=== PATIENT | female | born 1985 | race Two or more races ===

== ENCOUNTER 2024-08-08 06:00 | Day surgery (SDC) | payer MEDICAID, SELFPAY ==
--- NOTE | 2024-08-05 06:30 | EKG_ITS ---
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
[2024-08-05 09:59] VITALS: BMI 31.0
[2024-08-05 10:43] LABS: Collection Type, Urine Clean Catch
[2024-08-05 11:06] LABS: Basophils # (Auto) 0.1 Thou/mm3 (0.0-0.2); Basophils % (Auto) 1 % (0-2.5); Eosinophils # (Auto) 0.3 Thou/mm3 (0.0-0.5); Eosinophils % (Auto) 4 % (0-10); Hematocrit 38.8 % (36.0-46.0); Hemoglobin 13.2 g/dL (12.0-16.0); Immature Granulocytes % (Auto) 0 % (0-0); Immature Granulocytes Auto 0.02 Thou/mm3 (0.00-0.00); Lymphocytes # (Auto) 2.8 Thou/mm3 (1.0-4.8); Lymphocytes % (Auto) 35 % (10-50); Mean Corpuscular Hemoglobin 29.1 pg (25.0-35.0); Mean Corpuscular Volume 86 fL (80-100); Monocytes # (Auto) 0.5 Thou/mm3 (0.0-0.8); Monocytes % (Auto) 6 % (0-12); Neutrophils # (Auto) 4.3 Thou/mm3 (1.8-7.7); Neutrophils % (Auto) 54 % (37-80); Nucleated Red Blood Cell % 0 /100 WBC (0); Platelet Count 283 Thou/mm3 (140-440); RDW Standard Deviation 42.3 fL (36.4-46.3); Red Blood Count 4.54 Miln/mm3 (4.00-5.20)
[2024-08-05 11:08] LABS: Bilirubin,Urine Negative (Negative); Blood,Urine Negative (Negative); Clarity,Urine Clear (Clear/Hazy); Color,Urine Yellow (Lt Yel-Yel); Glucose, Urine Negative (Negative); Ketones,Urine Negative (Negative); Leukocyte Esterase,Urine Negative (Negative); Nitrite,Urine Negative (Negative); Protein,Urine Trace (Neg - Trace); RBC,Urine 1 /hpf (0-3); Specific Gravity,Urine 1.032 (1.001-1.035); Squamous Epithelial Cell,Urine 8 /hpf (0-5); Urobilinogen,Urine Negative mg/dL (0.0-1.0); WBC,Urine 1 /hpf (0-5)
[2024-08-05 11:12] LABS: HCG Qualitative,Urine Negative
[2024-08-05 11:13] LABS: INR 0.9 (0.9-1.3); Partial Thromboplastin Time 27.4 Seconds (22.0-36.0); Prothrombin Time 10.4 Seconds (9.0-12.2)
[2024-08-05 11:24] LABS: Alanine Aminotransferase 20 U/L (10-49); Albumin, Serum 4.5 gm/dL (3.5-5.0); Albumin/Globulin Ratio 1.7 (1.2-2.2); Alkaline Phosphatase 80 U/L (46-116); Anion Gap 8 (7-16); Aspartate Amino Transferase 14 U/L (0-34); BUN/Creatinine Ratio 29 Ratio (12-20); Bilirubin,Total 0.4 mg/dL (0.3-1.2); Blood Urea Nitrogen 20 mg/dL (9-23); Calcium 9.3 mg/dL (8.3-10.6); Calcium (Corrected) 9.3 mg/dL (8.5-10.1); Carbon Dioxide 26.8 mMol/L (20.0-31.0); Chloride 103 mMol/L (98-107); Creatinine (Component) 0.7 mg/dL (0.6-1.3); Estimated Creatinine Clearance 110.7 mL/min (>60); Globulin 2.7 gm/dL (2.3-3.5); Glucose 97 mg/dL (74-106); Osmolality,Calculated 278 (275-295); Potassium 3.9 mMol/L (3.4-5.1); Sodium 138 mMol/L (136-145); Total Protein 7.2 gm/dL (5.7-8.2); eGFR > 60 See Note
--- NOTE | 2024-08-05 15:53 | PD.SURHP ---
HPI Date of Admission August 08, 2024 Chief Complaint Chief Complaint: Painful mass in the right abdominal wall HPI This 39-year-old female is brought to the hospital for excision of a painful mass in the right abdominal wall that appears to be a probable lipoma. She will undergo ultrasound-guided localization and then excision of the mass. The risk benefits alternatives were discussed with the patient and informed consent is obtained. The risk include risk of infection and bleeding. There are also risks associated with anesthesia. Past Medical History Past Medical History NEUROLOGIC: Negative Neurological Disorders or Seizures CARDIAC: Negative Cardiac Disorders, Congestive Heart Failure, Edema or Cellulitis RESPIRATORY: Negative Chronic Obstructive Pulmonary Disease (COPD), Tuberculosis or Sleep Apnea GASTROINTESTINAL: Positive Gastrointestinal Disorders (SMALL SPOT LIVER BEING OBSERVE MD AWARE); Negative Hepatitis or Gall Bladder Disease GENITOURINARY: Negative Genitourinary Disorders or Renal Disease REPRODUCTIVE: Positive Previous Pregnancies (X2) MUSCULOSKELETAL: Negative Musculoskeletal Disorders ENT: Negative History of ENT Problems ENDOCRINE: Negative Endocrine Disorders, Diabetes Mellitus Type 1 or Diabetes Mellitus Type 2 HEMATOLOGIC: Negative Blood Disorders OTHER HISTORY: Positive Chicken Pox and Mumps; Negative Hospitalization, Autoimmune Disease, Shingles, Falls, Blood Transfusions, Anesthesia Reactions, Chemotherapy, Radiation Therapy, MRSA, Measles or Cancer Family History FAMILY HISTORY: Positive Family Gastrointestinal Problems (FATHER (GALL BLADDER)) and Family Surgery (MOTHER); Negative Family Psychiatric Problems, Family Respiratory Disorders, Family Cardiac Disorders, Family Genitourinary Problems, Family Endocrine Disorders, Family Reproductive Disorders, Family Musculoskeletal Disorders, Family Cancer or Family Anesthesia Reaction Surgical History SURGICAL: Negative Pacemaker OTHER SURGICAL HX: lipoma removed from abdomen Social History SMOKING STATUS: Never smoker Travel History EBOLA RISK: No Meds Home Medications and Allergies Home Medications ?Medication ?Instructions ?Recorded ?Confirmed ?Type No Known Home Medications 07/23/22 08/05/24 History Allergies Allergy/AdvReac Type Severity Reaction Status Date / Time No Known Allergies Allergy Verified 08/05/24 10:00 Exam Constitutional Constitutional: no acute distress Routine HEENT Exam Head: Present normocephalic Eye: Present EOMI and PERRL ENT: Present mucous membranes moist Routine Neck Exam Neck: Present supple and trachea midline Routine Chest/Breast/Axilla Exam Chest wall: Absent tenderness or mass Routine Respiratory Exam Respiratory: Present chest non-tender, lungs clear, normal breath sounds and no resp distress; Absent respiratory distress Routine Cardiovascular Exam Cardiovascular: Present RRR Routine Abdominal Exam Abdominal: Present soft and normoactive bowel sounds Comments: Exam of the abdominal wall shows that there is a painful tender mass to over the right flank and is not clearly palpable all the time. There is no hyperemia or induration. This will require localization with the ultrasound. Routine Extremities Exam Extremities: Present full ROM Routine Skin Exam Skin: Present intact, dry and warm Routine Neurological Exam Neurological: Present alert, oriented X3 and CN II-XII intact Routine Psychiatric Exam Psychiatric: Present normal affect and normal thought process Results Results: Laboratory Laboratory results: results reviewed Assessment & Plan Problem List (1) Mass of anterior abdominal wall: Status: Acute Plan Ultrasound-guided localization and excision of the mass of the right abdominal wall. Informed consent was obtained. Quality Measures Quality Measures none
[2024-08-08] VITALS (7 sets, daily range): BP systolic 118–139; BP diastolic 54–73; PULSE 55–87; RESP 15–17; TEMP 36.2–36.4; O2SAT 100
[2024-08-08] MEDS: RINGERS LACTATED 1000 ML 1,000 ML 60 ML IV (07:04)
--- NOTE | 2024-08-08 09:20 | SUR.PHASEI ---
pt received from OR in recovery bay 5. pt asleep but responds to voice, breathing unlabored on room air. v/s stable. pt dressing to right flank cdi. report received from Dr. Vega and Billie MAGUIRE.
--- NOTE | 2024-08-08 09:23 | PD.SUROPNT ---
Date of Procedure 08/08/24 Pre Op Diagnosis Painful mass right abdominal wall Post Op Diagnosis Painful lipoma right abdominal wall Procedure Ultrasound-guided localization and excision of painful lipoma right abdominal wall on August 08, 2024 Findings Ultrasound found a deep lipoma in the right abdominal wall below the fascia. This was localized on the surface. Procedure Description Patient was examined in the preop area and site and side were marked. The lipoma is not readily palpable. Informed consent is obtained. The patient is then taken to the operating room and anesthesia was given to the patient by the anesthesiologist. Real-time 7.5 MHz ultrasound was used to identify the location of the lipoma and it was marked on the surface. Patient was then prepped and draped in usual manner. Local anesthesia 1% lidocaine with epinephrine is used as an adjunct. A timeout procedure was carried out. Curvilinear transverse incision is made over the most prominent area where the lipoma was identified by the ultrasound. This was deepened through the skin and subcutaneous tissue and fascia is incised. Lipoma is identified and it is removed in its entirety. Hemostasis is achieved. The fascia is approximated by 3-0 Vicryl interrupted sutures. Skin by 3-0 Vicryl subcuticular stitches. Steri-Strips are applied a sterile dressing is applied patient taught the procedure very well. Complications none estimated loss of blood 2 mL Anesthesia MAC Drains None. Implants None. Pathology / specimen Other (Lipoma right abdominal wall) Estimated Blood Loss 2 Condition Stable Disposition PACU Surgeon Jose Luis Adames MD Surgical Staff Operation Date: 08/08/24 10:45 Case Staff Anesthesiologist: Trell Vega RN apprentice technician [employer] medical technologist
--- NOTE | 2024-08-08 10:20 | SUR.PHASEII ---
pt awake and alert, breathing unlabored on room air. v/s stable. pt dressing to right flank cdi. pt able to ambulate to wheelchair with steady gait. d/c instructions given with Satya in room using battery tester and repairer Allison morejon, all questions answered. pt d/c via wheelchair with all belongings.
== END 2024-08-08 10:20 | disposition home or self-care (01) ==
PROVIDERS: Anesthesiology; PCP Obstetrics & Gynecology; Referring Provider Specialist; Visit Provider Specialist
PROC: (CPT 22903; principal; 2024-08-08 10:30)
DX: D17.5 Benign lipomatous neoplasm of intra-abdominal organs (principal); G47.30 Sleep apnea, unspecified; I50.9 Heart failure, unspecified; Z01.810 Encounter for preprocedural cardiovascular examination
CPT/HCPCS: 22903; 36415; 80053; 81001; 81025; 85025; 85610; 85730; 93005; A4217; A4649; J0461; J0690; J2250; J2405; J2704; J2765; J3010; J3490; J7120

== ENCOUNTER → 2024-10-19 | Outpatient (CLI) | payer MEDICAID, SELFPAY ==
--- NOTE | 2024-10-19 13:00 | XR_ITS ---
Examination: Transvaginal ultrasound of the pelvis, complete Technique: Transvaginal sonographic images pelvis performed using riggins scale imaging Exam date and time: October 19, 2024 1322 hours INDICATIONS: Severe pelvic pain beginning 2 months ago. FINDINGS: Uterus 10.0 cm endometrial stripe 0.4 cm Posterior uterine body mass 9 x 7 x 9 mm Right ovary 2.3 cm arterial flow Left ovary obscured by bowel gas IMPRESSION: Mid posterior uterine body mass 9 x 7 x 9 mm most consistent with fibroid degeneration.
--- NOTE | 2024-10-19 13:00 | XR_ITS ---
Examination: Pelvic ultrasound, transabdominal, complete Technique: Transabdominal ultrasound of the pelvis performed using grayscale imaging Date and time of exam: October 19, 2024 1312 hours INDICATIONS: Severe pelvic pain beginning 2 months ago FINDINGS: Uterus 11.1 cm endometrial stripe 0.5 cm Uterine body area of fibroid degeneration 10 x 5 x 10 mm Right ovary 2.6 cm arterial flow Left ovary 2.4 cm arterial flow IMPRESSION: Small uterine area of fibroid degeneration as above
== END | disposition home or self-care (01) ==
PROVIDERS: PCP Obstetrics & Gynecology; Referring Provider Obstetrics & Gynecology; Visit Provider Obstetrics & Gynecology
DX: R10.2 Pelvic and perineal pain (principal); D25.9 Leiomyoma of uterus, unspecified
CPT/HCPCS: 76830; 76856

== ENCOUNTER → 2024-10-31 | Outpatient (CLI) | payer MEDICAID, SELFPAY ==
--- NOTE | 2024-10-31 12:15 | XR_ITS ---
Examination: Thoracic spine 3 views Technique one AP lateral coned lateral upper dorsal spine 3 views Exam date and time: October 31, 2024 1422 hours INDICATIONS: Mid back pain beginning 5 months ago FINDINGS: Upper thoracic dextroscoliosis 6 degrees Thoracolumbar levoscoliosis 9 degrees No thoracic fracture Mild diffuse thoracic disc narrowing IMPRESSION: Mild diffuse thoracic degenerative disc disease
== END | disposition home or self-care (01) ==
LOC: CDIM 12:07
PROVIDERS: PCP Internal Medicine; Referring Provider Internal Medicine; Visit Provider Internal Medicine
DX: M51.34 Other intervertebral disc degeneration, thoracic region (principal)
CPT/HCPCS: 72070

== ENCOUNTER → 2024-12-06 | Outpatient (CLI) | payer MEDICAID, SELFPAY ==
--- NOTE | 2024-12-06 14:45 | XR_ITS ---
Examination: Screening digital mammography, bilateral Computer aided detection 3-D breast Tomosynthesis, bilateral Date and time of exam: December 06, 2024 1435 hours Compared to mammograms dating to May 28, 2023 Indication: Screening Technique: Nonmagnified MLO, CC views of the breasts to been obtained, reconstructed from 3-D Tomosynthesis images. R2 computer aided detection program utilized for evaluation of suspicious masses and/or abnormal calcifications. 3-D Tomosynthesis images obtained. Findings: The breasts are extremely dense, which limits the sensitivity of mammography Benign calcifications. No interval suspicious masses Impression: BI-RADS category II: Benign Findings. Recommend 1 year follow-up mammogram.
== END | disposition home or self-care (01) ==
LOC: CDIM 14:17
PROVIDERS: Referring Provider Nurse Practitioner Family; Visit Provider Nurse Practitioner Family
DX: Z12.31 Encounter for screening mammogram for malignant neoplasm of breast (principal); R92.323 Mammographic fibroglandular density, bilateral breasts; R92.1 Mammographic calcification found on diagnostic imaging of breast
CPT/HCPCS: 77063; 77067